=== PATIENT | female | born 1990 | race Caucasian/White ===

== ENCOUNTER 2017-06-07 09:46 | Emergency (ER) | payer MEDICAID, OTHER ==
[~2017-06-07] VITALS: Ht 157.5 cm; Wt 75.0 kg
[2017-06-07 09:56] VITALS: Ht 157.5 cm; Wt 75.0 kg
--- NOTE | 2017-06-07 11:31 | ERD ---
ER Documentation Chief Complaint Date/Time DATE: 06/07/17 TIME: 11:30 Chief Complaint 6 WKS , VAG BLEEDING/SPOTTING, BACK PAIN HPI 27-year-old female who presents emergency department today complaining of vaginal bleeding for the past 4 days. States that the bleeding got heavier today. States that she is approximate 6 weeks . Denies any dysuria, nausea vomiting, fevers or chills. States she has not taken any medication for the pain. ROS All systems reviewed and are negative except as per history of present illness. Medications Home Meds Active Scripts Acetaminophen* (Tylophen*) 500 Mg Capsule, 1 CAP PO Q6H Y for PAIN AND OR ELEVATED TEMP, #30 CAP Prov:DAVID ALSTON PA-C 06/07/17 Allergies Allergies: Coded Allergies: No Known Allergy (Verified Allergy, Unknown, 04/14/07) Physical Exam Vitals Vital Signs Date Time Temp Pulse Resp B/P Pulse Ox O2 Delivery O2 Flow Rate FiO2 06/07/17 09:56 97.2 69 18 119/59 99 Physical Exam Const: NAD Head: Atraumatic Eyes: Normal Conjunctiva ENT: Normal External Ears, Nose and Mouth. Neck: Full range of motion..~ No meningismus. Resp: Clear to auscultation bilaterally Cardio: Regular rate and rhythm, no murmurs Abd: Soft, mild pelvic tenderness, non distended. Normal bowel sounds. No tenderness at McBurney's Skin: No petechiae or rashes Back: No midline or flank tenderness. Bilateral paraspinal tenderness. Ext: No cyanosis, or edema Neur: Awake and alert Psych: Normal Mood and Affect Result Diagram: 06/07/17 1205 Results 24 hrs Laboratory Tests Test 06/07/17 11:40 06/07/17 12:05 Urine Color YELLOW Urine Clarity CLEAR Urine pH 6.0 Urine Specific [place] 1.030 Urine Ketones 1+mg/dL Urine Nitrite NEGATIVEmg/dL Urine Bilirubin NEGATIVEmg/dL Urine Urobilinogen NEGATIVEmg/dL Urine Leukocyte Esterase NEGATIVELeu/ul Urine Microscopic RBC > 182/HPF Urine Microscopic WBC 3/HPF Urine Squamous Epithelial Cells FEW/HPF Urine Mucus FEW/HPF Urine Hemoglobin 3+mg/dL Urine Glucose NEGATIVEmg/dL Urine Total Protein 1+mg/dl White Blood Count 8.110^3/ul Red Blood Count 5.1310^6/ul Hemoglobin 13.0g/dl Hematocrit 41.0% Mean Corpuscular Volume 79.9fl Mean Corpuscular Hemoglobin 25.3pg Mean Corpuscular Hemoglobin Concent 31.7g/dl Red Cell Distribution Width 14.3% Platelet Count 46710^3/UL Mean Platelet Volume 10.4fl Neutrophils % 73.7% Lymphocytes % 20.0% Monocytes % 5.1% Eosinophils % 0.4% Basophils % 0.4% Nucleated Red Blood Cells % 0.0/100WBC Neutrophils # (Manual) 6.010^3/ul Lymphocytes # 1.610^3/ul Monocytes # 0.410^3/ul Eosinophils # 0.010^3/ul Basophils # 0.010^3/ul Nucleated Red Blood Cells # 0.010^3/ul Beta HCG, Quantitative 42881.0mIU/ml DIAGNOSTIC IMAGING REPORT Patient: CECILIA PIERCE : 1990 Age: 27 Sex: F MR #: [id number] DOS: 06/07/17 1129 Ordering MD: DAVID ALSTON PA-C Location: [facility] Room/Bed: PROCEDURE: US OB. CLINICAL INDICATION: Vaginal bleeding in . TECHNIQUE: Transabdominal and endovaginal imaging of the uterus is available for review COMPARISON: None available FINDINGS: There is a single intrauterine with a mean sac diameter of 1.1 cm, giving an estimated gestational age of 5 weeks 5 days by ultrasound criteria. No pole is detected. No subchorionic hemorrhage is identified. The ovaries demonstrate a left ovarian corpus luteum cyst. IMPRESSION: Single intrauterine with an estimated gestational age of 5 weeks 5 days by ultrasound criteria. No pole is identified. This may be secondary to early dates. Repeat pelvic ultrasound is recommended in 1 week. RPTAT: HH .Sarah Howard MD, Date Time Electronically viewed and signed by .Sarah Howard MD, MD on 06/07/2017 13 :40 .G/ CC: DAVID ALSTON PA-C Procedures/MDM This is a 27-year-old female who presents to the emergency department today complaining of vaginal bleeding. Patient states she is approximately 6 weeks prior. Given this I did obtain a complete OB workup. Laboratory work shows no elevated white blood cell count. She is not anemic. Platelets are within normal limits. UA negative for infection Beta quant hCG 98035 Rh status O+ Ultrasound shows a single intrauterine with estamed gestaional age of 5 weeks and 5 days by ultrasound. No pole is identified. This may be secondary to early dates. NO subchorionic hemorrhage is identified. Repeat pelvic US is recommended in 1 week. Patient symptoms at this time is consistent with vaginal bleeding in early . Other differentials to consider early normal versus early failed v Patient is afebrile and otherwise well-appearing. I have low suspicion for ectopic , tubo ovarian abscess, ovarian torsion. I have explained the results to the patient. I have explained to the patient that they need to follow-up repeat beta quant and ultrasound in 1 week. She declined Tylenol here in the emergency department. She was given a prescription for home. At this time the patient is stable for discharge and outpatient management. Patient should follow up with their PCP in the next 1-2 days. They may return to the emergency department sooner for any persistent or worsening of symptoms. Patient understood and agreed with the plan. Departure Diagnosis: Primary Impression: Vaginal bleeding in patient at less than 20 weeks gestation Condition: Fair DAVID ALSTON PA-C Jun 07, 2017 11:31
[2017-06-07 12:24] LABS: BASOPHILS % 0.4 % (0.0-2.0); EOSINOPHILS % 0.4 % (0.0-7.0); LYMPHOCYTES # 1.6 10^3/ul (0.8-2.9); MEAN CORPUSCULAR HEMOGLOBIN 25.3 pg (29.0-33.0); MEAN CORPUSCULAR HGB CONC 31.7 g/dl (32.0-37.0); MEAN CORPUSCULAR VOLUME 79.9 fl (82.0-101.0); MEAN PLATELET VOLUME 10.4 fl (7.4-10.4); MONOCYTE # 0.4 10^3/ul (0.3-0.9); MONOCYTES % 5.1 % (0.0-11.0); NEUTROPHILS % 73.7 % (39.0-77.0); PLATELET COUNT 346 10^3/UL (140-415); RED BLOOD COUNT 5.13 10^6/ul (4.20-5.40); RED CELL DISTRIBUTION WIDTH 14.3 % (11.5-14.5); WHITE BLOOD COUNT 8.1 10^3/ul (4.8-10.8)
[2017-06-07 12:47] LABS: ADD UMIC YES; UR ASCORBIC ACID NEGATIVE (NEGATIVE); UR BILIRUBIN (Dip) NEGATIVE (NEGATIVE); UR BLOOD (Dip) 3+ mg/dL (NEGATIVE); UR CLARITY CLEAR (CLEAR); UR COLOR YELLOW (YELLOW); UR GLUCOSE (Dip) NEGATIVE (NEGATIVE); UR KETONES (Dip) 1+ mg/dL (NEGATIVE); UR LEUKOCYTE ESTERASE (Dip) NEGATIVE Leu/ul (NEGATIVE); UR MUCUS FEW /HPF (NONE SEEN); UR NITRITE (Dip) NEGATIVE (NEGATIVE); UR RBC > 182 /HPF (0-5); UR SQUAMOUS EPITHELIAL CELL FEW /HPF (FEW); UR TOTAL PROTEIN (Dip) 1+ mg/dl (NEGATIVE); UR UROBILINOGEN (Dip) NEGATIVE (NEGATIVE)
--- NOTE | 2017-06-07 13:40 | RADRPT ---
PROCEDURE: US OB. CLINICAL INDICATION: Vaginal bleeding in . TECHNIQUE: Transabdominal and endovaginal imaging of the uterus is available for review COMPARISON: None available FINDINGS: There is a single intrauterine with a mean sac diameter of 1.1 cm, giving an estimated ges tational age of 5 weeks 5 days by ultrasound criteria. No pole is detected. No subchorionic hemorrhage is identified. The ovaries demonstrate a left ovarian corpus luteum cyst. IMPRESSION: Single intrauterine with an estimated gestational age of 5 weeks 5 days by ultrasound crit eria. No pole is identified. This may be secondary to early dates. Repeat pelvic ultrasound is recommended in 1 week. RPTAT: HH .Sarah Howard MD, MD Date Time Electronically viewed and signed by .Sarah Howard MD, on 06/07/2017 13:40 .G/
[2017-06-07] MEDS ORDERED: ACET500C5 PO (14:07)
[2017-06-10] MEDS ORDERED: DOXY100T20 PO (02:45)
[2017-06-10] MEDS ORDERED: HYDR-902 PO (02:45)
== END 2017-06-07 14:16 | disposition home or self-care (01) ==
LOC: FTE 09:46
DX: O20.9 Hemorrhage in early pregnancy, unspecified (principal); Z3A.01 Less than 8 weeks gestation of pregnancy
CPT/HCPCS: 76801; 76817; 81001; 84702; 85025; 86900; 86901; Z7502

== ENCOUNTER 2019-02-19 06:52 | Inpatient (IN) | payer OTHER ==
[~2019-02-19] VITALS: Ht 156.2 cm; Wt 84.6 kg
[~2019-02-19 06:52] MED LIST: ACET500C5 PO; DOXY100T20 PO; HYDR-3980 PO
[2019-02-19 06:58] VITALS: BP 116/59; PULSE 64; RESP 19; Ht 156.2 cm; Wt 84.6 kg
[2019-02-19] MEDS ORDERED: LACTATED RINGER'S 1,000 ML IV SCH (07:50)
[2019-02-19] MEDS ORDERED: PREN-93 PO (07:54)
[2019-02-19] MEDS ORDERED: OXYTOCIN 30 UNITS/LR 500 ML IV PRN ×2 (08:00→13:00)
[2019-02-19] MEDS ORDERED: LIDOCAINE 1% (MPF) 30 ML INJ INJ PRN (08:00)
[2019-02-19] MEDS ORDERED: MISOPROSTOL 200 MCG TAB PR PRN ×2 (08:00→13:00)
[2019-02-19] MEDS ORDERED: IBUPROFEN 600 MG TAB PO PRN (08:00)
[2019-02-19] MEDS ORDERED: METHYLERGONOVINE 0.2 MG INJ IM PRN ×2 (08:00→13:00)
[2019-02-19] MEDS ORDERED: OXYTOCIN 30 UNITS/LR 500 ML IV SCH ×2 (08:00)
[2019-02-19] MEDS ORDERED: BUTORPHANOL 2 MG INJ IV PRN (08:00)
[2019-02-19] MEDS ORDERED: CARBOPROST 250 MCG INJ IM PRN ×2 (08:00→13:00)
--- NOTE | 2019-02-19 08:04 | TRIAGE ---
OB Triage Datetime Report Generated by CPN: 02/19/2019 08:03 Datetime: 02/19/2019 07:44 Stage of : Labor Assessment Type: Admission Assessment Maternal Assessment Level of Consciousness: Fully Conscious DTR's/Clonus: DTRs 2+; No Clonus Headache: Denies Blurred Vision: No Respiratory Effort: Unlabored; Regular Rhythm; Equal Expansion Breath Sounds, Left: Clear and Equal Breath Sounds, Right: Clear and Equal Nausea/Vomiting: Denies RUQ Epigastric Pain: Denies Lower Extremities Edema: None Upper Extremities Edema: None Facial Edema: None Temperature Route: Oral Fall Risk Assessment History of Falling: (0) No Secondary Diagnosis: (0) No Ambulatory Aid: (0) Bedrest/Nurse Assist IV Therapy: (0) No Gait: (0) Normal/Bedrest/Immobile Mental Status: (0) Oriented to Own Ability Fall Score: 0 Fall Risk Score Definition: No Risk: No action required Datetime: 02/19/2019 07:40 Time of Arrival: 02/19/2019 07:41 EGA: 39.0 Arrived By: Ambulatory Datetime: 02/19/2019 07:26 Labor Evaluation Frequency: 3-5 Monitor Mode: External Duration (sec)2399: 50-60 Quality: Moderate Pattern: Normal: <= 5 Contractions in 10 Minutes Resting Tone Tony: Relaxed Heart Rate FHR Baseline Rate: 140 Monitor Mode: External US FHR Baseline Changes: No Baseline Change Variability: Moderate 6-25 bpm Accelerations: 15X15 Decelerations: None Category: Category I Comments: Pt to FBC5, report to [facility] RN Pain Assessment Pain Scale: 9 Pain Presence: Intermittent Pain Type: Contraction Pain Location: Abdomen; Back Pain Goal: 9 Pain Relief Measures: Comfort Measures Datetime: 02/19/2019 07:24 Vaginal Exam Dilatation (cms): 6.5 Effacement (%): 80 Station: -2 Exam By: LH Datetime: 02/19/2019 07:15 Time of Arrival: 02/19/2019 06:44 EGA: 39.0 Arrived By: Ambulatory Arrived From: Home Chief Complaint: UC'S SINCE 0430 Movement: Present Contractions: Regular Time Contractions Began: 02/19/2019 04:30 Contractions: Q5MINS Rupture of Membranes: Denies Vaginal Bleeding: None Vaginal Discharge: Denies Recent Sexual Intercouse: Denies Abdominal Trauma: Not Applicable Patient Complaints: Contractions Additional Patient Complaints: 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
--- NOTE | 2019-02-19 10:57 | LDN ---
Date/Time of Note Date/Time of Note DATE: 02/19/19 TIME: 10:54 Delivery Summary of normal female with loose nuchal cord Weeks of Gestation 39w Placenta Delivered: Spontaneously, Intact & Complete Meconium: none Episiotomy: No Perineal laceration: 0 Anesthesia type: None Estimated blood loss: 100 Sponge & Needle done & correct: Yes All needle counts correct: Yes Any foreign bodies felt in the: No Infant Delivery Information Sex Sex: female Apgars 1 Minute: 8 5 Minute: 9 Suctioning Nose & mouth suctioned at enrrique: Yes Delee suction performed: No Umbilical Cord Umbilical cord with: 3 Vessels Cord presentations: nuchal cord Cord Blood was obtained: Yes Mother & Baby Disposition Disposition Mom & Baby to Maternity; Good: Yes Mom transferred to: Other Baby to NICU: No () FANNY GUTIERREZ MD February 19, 2019 10:57
--- NOTE | 2019-02-19 11:06 | HP ---
Date/Time of Note Date/Time of Note DATE: 02/19/19 TIME: 10:59 OB - History Hx of Present Free Text/Dictation 28y.o A1 who had x3 here at triage in active labor with intact membrane. 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 GBS neg admitted for expectant management. Chief Complaint: UC's Estimated Due Date: February 26, 2019 : 5 Para: 3 Spontaneous : 1 Therapeutic : 0 Care: Good Care Ultrasounds: Normal mid trimester US Obstetrical Complications: None Medical Complications: None Past Family/Social History * Past Medical, Surgical, Family and Obstetric Histories reviewed from [facility]. Blood Type: O+ Rubella: not immune RPR/VDRL: Negative GBS Status: Negative HBsAG: Negative OB Admission Exam Vital Signs Vital Signs Vital Signs Date Temp Pulse Resp B/P (MAP) Pulse Ox O2 O2 Flow FiO2 Time Delivery Rate 02/19/19 98.0 64 19 116/59 Room Air 06:58 (78) Physical Exam HEENT: WNL Heart: Rhythm Normal Lungs: Clear, Equal Abdomen: WNL Extremities: Normal Reflexes: Normal Cervical Dilatation: 7cm Effacement: 75% Station: -2 Membranes: Intact Amniotic Fluid: Unevaluable Heart Rate: 140's Accelerations: Accelerations Present Decelerations: No Decelerations Varibility: Moderate Contractions on Admission: < 5 Minutes Apart Intensity: Firm Last 72 hours Lab Results CBC & BMP 02/19/19 07:56 OB Assessment/Plan Reason for admission: active labor Other Assessment: IUP 39w Plan: Expectant Management FANNY GUTIERREZ MD February 19, 2019 11:06
[2019-02-19 12:20] VITALS: BP 110/59; PULSE 54; RESP 18
[2019-02-19] MEDS: IBUPROFEN 600 MG TAB PO SCH ×2 (12:57→17:28)
[2019-02-19] MEDS: LANOLIN HPA 1 PKT TOP PRN (12:57)
[2019-02-19] MEDS ORDERED: BENZOCAINE 20% 56 ML SPRAY TOP PRN (13:00)
[2019-02-19] MEDS ORDERED: OXYCODONE/ASPIRIN (4.88/325) TAB PO PRN ×2 (13:00)
[2019-02-19] MEDS ORDERED: WITCH HAZEL/GLYCERIN PAD PR PRN (13:00)
[2019-02-19] MEDS ORDERED: ZOLPIDEM 5 MG TAB PO PRN (13:00)
[2019-02-19 15:40] VITALS: BP 114/76; PULSE 72; RESP 18
[2019-02-19 20:30] VITALS: BP 110/75; PULSE 75; RESP 17
[2019-02-19] MEDS: SENNA/DOCUSATE NA (8.6MG/50MG) TAB PO SCH (21:17)
[2019-02-20] MEDS: IBUPROFEN 600 MG TAB PO SCH ×5 (00:10→23:55)
[2019-02-20 03:54] VITALS: BP 99/55; PULSE 61; RESP 18
[2019-02-20 08:00] VITALS: BP 116/46; PULSE 60; RESP 17
[2019-02-20] MEDS ORDERED: MEASLES,MUMPS,RUBELLA VACCINE INJ SC* ONE (09:00)
[2019-02-20] MEDS: SENNA/DOCUSATE NA (8.6MG/50MG) TAB PO SCH ×2 (09:56→23:55)
--- NOTE | 2019-02-20 11:51 | PD.PPDC ---
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
--- NOTE | 2019-02-20 11:54 | DS ---
Date/Time of Note Date/Time of Note DATE: 02/20/19 TIME: 11:53 Obstetrical Discharge Record Final Diagnosis Final Diagnosis: Term delivered Vaginal Delivery Obstetrical Delivery: Spontaneous Condition on Discharge Physical Assessment Last Vitals: stable afebrile Voiding: Yes Bowel Movement: Yes Breast: Soft, non-tender, Filling Fundus: Firm Abdomen and Incision: soft nt Calf Tenderness: No Patient Condition: Fair MANNY LOGAN MD February 20, 2019 11:54
[2019-02-20 16:00] VITALS: BP 110/55; PULSE 55; RESP 18
[2019-02-20 20:00] VITALS: BP 104/78; PULSE 64; RESP 18
[2019-02-21 03:52] VITALS: BP 114/56; PULSE 60; RESP 20
[2019-02-21] MEDS: IBUPROFEN 600 MG TAB PO SCH (05:42)
[2019-02-21 07:30] VITALS: BP 95/56; PULSE 55; RESP 16
[2019-02-21] MEDS: SENNA/DOCUSATE NA (8.6MG/50MG) TAB PO SCH (08:17)
[2019-02-21] MEDS: LANOLIN HPA 1 PKT TOP PRN (08:18)
[2019-02-21] MEDS ORDERED: DIPHTH/TET/ACEL PERTUSS (ADULT) 0.5 ML VIAL IM* ONE (09:00)
--- NOTE | 2019-02-22 12:38 | DELSUM ---
Delivery Summary A-C Datetime Report Generated by CPN: 02/22/2019 12:38 DELIVERY PERSONNEL Baseball Sewer Hand: Abdullahi, Halima MATERNAL INFORMATION Delivery Anesthesia: None Medications in Delivery: LR with 30 Units Pitocin Delivery QBL (ml): 250 Placenta Cultured: No Maternal Complications: None LABOR SUMMARY EDC: 02/26/2019 00:00 No. Babies in Womb: 1 Attempted: No Labor Anesthesia: None LABOR INFORMATION Reason for Induction: Not Applicable Onset of Labor: 02/19/2019 04:30 Complete Dilatation: 02/19/2019 09:09 Oxytocin: N/A Group B Beta Strep: Negative Antibiotics # of Doses: None Steroids Given: None Reason Steroids Not Administered: Not Applicable MEMBRANES Membranes Rupture Method: Artificial Rupture of Membranes: 02/19/2019 09:05 Length of Rupture (hr): 0.10 Amniotic Fluid Color: Clear Amniotic Fluid Amount: Small Amniotic Fluid Odor: None STAGES OF LABOR Stage 1 hr: 4 Stage 1 min: 39 Stage 2 hr: 0 Stage 2 min: 2 Stage 3 hr: 0 Stage 3 min: 15 Total Time in Labor hr: 4 Total Time in Labor min: 56 VAGINAL DELIVERY Episiotomy: None Laceration Extension: N/A Laceration Type: None Laceration Repair: No Initial Vag Sponge Count: 10 Final Vag Sponge Count: 10 Initial Vag Sharps Count: 1 Final Vag Sharps Count: 1 Sponge Count Correct: Yes; Vaginal Sweep Performed Sharps Count Correct: Yes BABY A INFORMATION Infant Delivery Date/Time: 02/19/2019 09:11 Method of Delivery: Vaginal Born in Route : No : N/A Forceps: N/A Vacuum Extraction: N/A Shoulder Dystocia : No SHOULDER DYSTOCIA BABY A Delivery Date/Time: 02/19/2019 09:11 PRESENTATION/POSITION BABY A Presentation: Cephalic Cephalic Presentation: Vertex Vertex Position: Left Occipital Anterior Breech Presentation: N/A PLACENTA INFORMATION BABY A Placenta Delivery Time : 02/19/2019 09:26 Placenta Method of Delivery: Spontaneous Placenta Status: Delivered SCORES BABY A Heart Rate 1 min: >100 bpm Resp Effort 1 min: Good Cry Reflex Irritability 1 min: Cough/Sneeze/Pulls Away Muscle Tone 1 min: Active Motion Color 1 min: Body Arnot, Extremit Blue Resuscitation Effort 1 min: Tactile Stimulation SCORE 1 MIN: 9 Heart Rate 5 min: >100 bpm Resp Effort 5 min: Good Cry Reflex Irritability 5 min: Cough/Sneeze/Pulls Away Muscle Tone 5 min: Active Motion Color 5 min: Body Arnot, Extremit Blue Resuscitation Effort 5 min: Tactile Stimulation SCORE 5 MIN: 9 INFANT INFORMATION BABY A Gestational Age at Delivery: 39.0 Gestational Status: Full Term- 39- 40.6 Weeks Outcome : Liveborn Infant Condition : Stable Sex: Female IDENTIFICATION/MEDS BABY A ID Band Number: [id number] ID Band Location: Right Leg; Left Arm Sensor Applied: Yes Sensor Number: [id number] Sensor Location : Cord Clamp Vitamin K Given : Not Given Erythromycin Given: Not Given WEIGHT/LENGTH BABY A Birthweight (gm): 3175 Infant Weight (lb): 7 Infant Weight (oz): 0 Length (in): 20.25 Infant Length (cm): 51.44 CORD INFORMATION BABY A No. Cord Vessels: 3 Nuchal Cord : Around Neck x1, Loose Cord Blood Taken: Yes Infant Suction: Mouth; Nose ASSESSMENT BABY A Complications: None Physical Findings at Delivery: Within Normal Limits Infant Respirations: Appears Normal Systems Mechanic/ALS Called : No Care By: LUNA GRIDER RN Transferred To: Remains with Mother
== END 2019-02-21 12:37 | disposition home or self-care (01) | DRG 807 ==
LOC: OBT 06:52 → L-D 06:53 → OBT 07:30 → PP1 12:32
PROVIDERS: ADMIT Obstetrics & Gynecology; ATTEND Obstetrics & Gynecology
PROC: 10E0XZZ Delivery of Products of Conception, External Approach (ICD-10-PCS; principal; 2019-02-19)
DX: O69.81X0 Labor and delivery complicated by cord around neck, without compression, not applicable or unspecified (principal); Z37.0 Single live birth; Z3A.39 39 weeks gestation of pregnancy
CPT/HCPCS: 85025; 85610; 85730; 86592; 86850; 86900; 86901; 87340; J2590; J7120